=== PATIENT | male | born 1985 | race Caucasian/White ===

== ENCOUNTER 2020-12-18 18:01 | Emergency (ER) | payer OTHER ==
[~2020-12-18] VITALS: Ht 172.7 cm; Wt 100.0 kg
[2020-12-18 20:07] LABS: BASOPHILS % 0.6 % (0.0-2.0); EOSINOPHILS % 1.3 % (0.0-5.0); HEMATOCRIT. 44.7 % (42.0-52.0); HEMOGLOBIN. 15.5 g/dL (14.0-18.0); MEAN CORPUSCULAR HEMOGLOBIN 29.8 pg (28.0-32.0); MEAN CORPUSCULAR VOLUME 85.8 fL (80.0-94.0); MEAN PLATELET VOLUME 8.2 fl (7.4-10.4); MONOCYTES % 5.9 % (2.0-8.0); NEUTROPHILS % 66.2 % (40.0-76.0); PLATELET 261 x1000/uL (130-400); RED BLOOD CELL COUNT 5.21 mill/uL (4.7-6.1); RED CELL DISTRIBUTION WIDTH 13.1 % (11.6-14.6)
[2020-12-18 20:14] LABS: CHLORIDE 107 mEq/L (98-107)
[2020-12-18] MEDS: LORAZEPAM 2MG/ML CPJ IM PRN (20:23)
[2020-12-18 20:39] LABS: ETHANOL BLOOD 312 mg/dL
[2020-12-18 22:00] VITALS: BP 155/97
[2020-12-19] MEDS: LORAZEPAM 2MG/ML CPJ IM PRN (02:21)
== END 2020-12-18 22:00 | disposition home or self-care (01) ==
LOC: ER 18:01
DX: F10.129 Alcohol abuse with intoxication, unspecified (principal); Y90.8 Blood alcohol level of 240 mg/100 ml or more
CPT/HCPCS: 36415; 80053; 80307; 80320; 80329; 85025; 99283; J2060; 96372; G0480